=== PATIENT | male | born 2000 | race Caucasian/White ===

== ENCOUNTER 2021-10-20 19:47 | Emergency (ER) | payer MEDICAID ==
[2021-10-20] MEDS ORDERED: IBUPROFEN600 MG PO (21:21)
== END 2021-10-20 21:28 | disposition home or self-care (01) ==
LOC: ER1 19:47
DX: S63.501A Unspecified sprain of right wrist, initial encounter (principal); S80.211A Abrasion, right knee, initial encounter; F17.290 Nicotine dependence, other tobacco product, uncomplicated; V86.59XA Driver of other special all-terrain or other off-road motor vehicle injured in nontraffic accident, initial encounter; Y92.410 Unspecified street and highway as the place of occurrence of the external cause
CPT/HCPCS: 29125; 73110; 73130; 99283